=== PATIENT | female | born 2000 | race Caucasian/White ===

== ENCOUNTER 2023-02-11 15:57 | Outpatient (CLI) | payer OTHER, SELFPAY ==
[2023-02-11] VITALS (11 sets, daily range): BP systolic 127–141; BP diastolic 76–88; PULSE 55–110; TEMP 36.8; O2SAT 99; BMI 36.5
[2023-02-11 17:08] LABS: Protein, Urine (Random) 16.9 mg/dL (<11.9); Protein:Creat Ratio 305 mg/g CRE (0-200)
[2023-02-11 17:22] LABS: Hematocrit 35.1 % (37-47); Hemoglobin 11.5 g/dL (12.0-15.0); Mean Corp Hgb Conc 32.8 g/dL (32-36); Mean Corpuscular Hgb 30.5 pg (27.0-32.0); Mean Corpuscular Volume 93.1 fL (81-99); Mean Platelet Vol. 9.7 fl (6.2-12.0); Platelet Count 287 K/mm3 (150-450); RBC Distribution Width CV 13.9 % (11.6-14.6); Red Blood Count 3.77 M/mm3 (4.2-5.4); White Blood Count 16.1 K/mm3 (4.4-11.0)
[2023-02-11 17:30] LABS: AST(SGOT) 11 U/L (15-37); Alanine Aminotransfer ALT/SGPT 20 U/L (13-56); Creatinine, Serum 0.64 mg/dL (0.55-1.02); EST Glomerular Filtration Rate 121 mL/min (>60); Est Glom Filt Rate - Afr Amer 147 mL/min (>60); Estimated Creatinine Clearance 142.87 ml/min; Uric Acid 3.7 mg/dL (2.6-6.0)
--- NOTE | 2023-02-11 17:43 | OB.TRI.HP_ITS ---
HPI - General HPI Narrative MENDY ENNIS, is a 22 F at 30.4 weeks gestation who presents to triage with headache, dizziness, blurred vision, stomach pain, and increased blood pressures at home. Reports that pressures at home were 170/120 and 140's / 100's. Patient has a history of 35 week gestation delivery for preeclampsia. She is a recent transfer of care from [facility] in [place]. Maternal Data Information LIONEL Calculator Estimated Delivery Date Method Current WG Current Estimate 04/18/23 Manual 30w 4d PFSH PFSH Home Medications aspirin 81 mg chewable tablet (Aspirin Childrens) 1 tab PO DAILY 02/11/23 [History Last Taken 02/10/23 21:30] fluoxetine 40 mg capsule (Prozac) 40 mg PO DAILY 02/11/23 [History Last Taken 02/10/23 21:30] vitamins-iron fumarate 65 mg iron-folic acid 1 mg tablet (Mynatal Plus) 1 tab PO DAILY 02/11/23 [History Last Taken 02/10/23 21:30] Allergy/AdvReac Type Severity Reaction Status Date / Time No Known Allergies Allergy Verified 02/11/23 16:34 ROS Eyes Eyes: Reports blurry vision and spots in vision Cardiovascular Cardiovascular: Reports none; Denies chest pain at rest, chest pain with activity or dizziness Respiratory/Chest Respiratory/Chest: Denies cough or dyspnea Gastrointestinal Gastrointestinal: Reports none and other; Denies diarrhea or vomiting Genitourinary Genitourinary: Denies dysuria Musculoskeletal Musculoskeletal: Reports none Integumentary Integumentary: Reports none; Denies rash Neurologic Neurologic: Reports as per HPI, dizziness and headache(s) Psychiatric Psychiatric: Reports none Physical Exam Narrative Patient seen at bedside. Sitting up in bed during assessment. Const alert and no apparent distress General Appearance: cooperative Orientation / Consciousness: awake Exam Limitations: no limitations HEENT normocephalic Eyes General Eye: normal appearance of both eyes Neck full ROM Chest inspection of chest normal Resp normal respiratory effort and normal air movement Effort and Inspection: symmetric chest movement Auscultation: clear to auscultation bilaterally Cardio regular rate GI soft to palpation, non-tender and non-distended Inspection: and other Back/Spine normal ROM Extremity full ROM, normal capillary refill and no calf tenderness Skin no rashes or lesions noted Neuro oriented x3 and CN's II-XII intact bilaterally Psych mental status grossly normal Assessment & Plan (1) 30 weeks gestation of : (2) Headache: (3) Vision changes: (4) Dizzinesses: (5) Elevated blood pressure reading: (6) History of pre-eclampsia in prior , currently : (7) History of delivery: PLAN: Plan PIH labs- normal ranges P/C ratio- 305 Blood pressures- no severe ranges Tylenol 1000 mg PO x 1 now Observation over night- NST every shift Repeat PIH labs and Urine in morning Regular diet BP every 4 hours- call if severe range Dr. Lynn involved in plan of care
[2023-02-11] MEDS: Acetaminophen 500 MG Tablet 1000 MG PO (18:51)
[2023-02-11 19:50] LABS: Color, Urine Yellow (Yellow); Glucose, Dipstick Normal (Normal); Ketone-Dipstick 50 mg/dl (Negative); Leukocyte Esterase-Dipstick Negative /ul (Negative); Nitrite-Dipstick Negative (Negative); Occult Blood-Urine Negative /ul (Negative); Protein-Dipstick Negative (Negative); Urine Bilirubin Dipstick Negative (Negative); Urine Clarity Clear (Clear); Urine Urobilinogen Normal (Normal)
[2023-02-11] MEDS: Mag Hydrox/Al Hydrox/Simeth 30 ML UDC PO (22:27)
[2023-02-11] MEDS: Ondansetron ODT 4 MG Tablet PO (22:27)
[2023-02-12 00:57] VITALS: PULSE 92; O2SAT 97
[2023-02-12 00:58] VITALS: BP 116/56; PULSE 90
[2023-02-12 00:59] VITALS: TEMP 36.1
[2023-02-12 04:31] VITALS: PULSE 92; O2SAT 99
[2023-02-12 04:32] VITALS: BP 97/52; PULSE 91; TEMP 36.4
[2023-02-12] MEDS: Acetaminophen 500 MG Tablet 1000 MG PO (05:04)
[2023-02-12 05:08] LABS: Hematocrit 34.1 % (37-47); Hemoglobin 11.4 g/dL (12.0-15.0); Mean Corp Hgb Conc 33.4 g/dL (32-36); Mean Corpuscular Hgb 31.2 pg (27.0-32.0); Mean Corpuscular Volume 93.4 fL (81-99); Mean Platelet Vol. 9.6 fl (6.2-12.0); Platelet Count 259 K/mm3 (150-450); RBC Distribution Width SD 47.6 fl (35.1-43.9); Red Blood Count 3.65 M/mm3 (4.2-5.4); White Blood Count 13.6 K/mm3 (4.4-11.0)
[2023-02-12 05:26] LABS: AST(SGOT) 13 U/L (15-37); Alanine Aminotransfer ALT/SGPT 21 U/L (13-56); Creatinine, Serum 0.56 mg/dL (0.55-1.02); EST Glomerular Filtration Rate 143 mL/min (>60); Est Glom Filt Rate - Afr Amer 173 mL/min (>60); Estimated Creatinine Clearance 163.28 ml/min; Uric Acid 3.6 mg/dL (2.6-6.0)
--- NOTE | 2023-02-12 08:18 | PN.OBGYN_ITS ---
Subjective Subjective Patient is doing well this morning and was asleep upon entry into the room. She reports her headache improves with Tylenol. She denies visual changes. She denies abdominal pain or vomiting. Tolerating a regular diet. She has no contractions, vaginal bleeding, leaking of fluid. Good movement. Objective Data Objective Data Vital Signs: Vital Signs Temp Pulse BP Pulse Ox 97.6 F L 91 97/52 L 99 02/12/23 04:32 02/12/23 04:32 02/12/23 04:32 02/12/23 04:31 Weight: 247 lb 5.738 oz Body Mass Index (BMI) 36.5 Lab / Micro Data 02/12/23 04:58 02/12/23 04:58 Labs: Laboratory Results - last 24 hr 02/11/23 16:05: U Random Total Protein 16.9 H, Urine Creatinine 55.40, Protein/Creatinin Ratio 305 H 02/11/23 17:00: WBC 16.1 H, RBC 3.77 L, Hgb 11.5 L, Hct 35.1 L, MCV 93.1, MCH 30.5, MCHC 32.8, RDW Std Deviation 47.0 H, RDW Coeff of Miguel 13.9, Plt Count 287, MPV 9.7, Creatinine 0.64, Estim Creat Clear Calc 142.87, Est GFR (MDRD) Af Amer 147, Est GFR (MDRD) Non-Af 121, Uric Acid 3.7, AST 11 L, ALT 20 02/11/23 19:30: Urine Color Yellow, Urine Clarity Clear, Urine pH 7.0, Ur Specific [place] 1.010, Urine Protein Negative, Urine Glucose (UA) Normal, Urine Ketones 50 H, Urine Occult Blood Negative, Urine Nitrite Negative, Urine Bilirubin Negative, Urine Urobilinogen Normal, Ur Leukocyte Esterase Negative 02/12/23 04:58: WBC 13.6 H, RBC 3.65 L, Hgb 11.4 L, Hct 34.1 L, MCV 93.4, MCH 31.2, MCHC 33.4, RDW Std Deviation 47.6 H, RDW Coeff of Miguel 14.0, Plt Count 259, MPV 9.6, Creatinine 0.56, Estim Creat Clear Calc 163.28, Est GFR (MDRD) Af Amer 173, Est GFR (MDRD) Non-Af 143, Uric Acid 3.6, AST 13 L, ALT 21 Physical Exam Const alert and no apparent distress General Appearance: comfortable GI soft to palpation, non-tender and non-distended GI Narrative: No RUQ tenderness Extremity normal to inspection and no calf tenderness Extremity Narrative: Patellar reflexes are 2+ Assessment & Plan (1) 30 weeks gestation of : (2) Pre-eclampsia: PLAN: Headache improved with Tylenol. No other symptoms of preeclampsia this morning. Blood pressures remain normal to mild range. Labs are unremarkable other than elevated protein creatinine ratio. Discussed preeclampsia with patient and reasons to call or come in for further evaluation. Given no evide nce of severe preeclampsia, okay for discharge to home today. Will give first dose of betamethasone today. To return to the office tomorrow before the weekend for her second dose of betamethasone and a blood pressure check. Continue home blood pressure monitoring and call if blood pressure is 160/110 or higher. Will need twice weekly appointments in the office as well, and will message nursing staff regarding this. Discussed with patient if delivery under 32-week gestation baby is likely to get transferred to [place] for further care.
[2023-02-12 08:19] VITALS: BP 124/74; PULSE 83; PULSE 87; TEMP 36.4; O2SAT 100
--- NOTE | 2023-02-12 08:28 | DCINST_ITS ---
Discharge Instructions Diet Discharge Diet: No restrictions Activity May resume sexual activity in: No Restrictions Weight Bearing Status: Weight bearing as tolerated Lifting Restrictions: None Dressing / Incision Call your doctor if you observe: Shortness of breath, Swelling in the ankles, Chest pain, Increased palpitations (irregular heartbeat) and Uncontrolled pain Follow Up Care When: 02/13/23 for second dose of betamethasone and a blood pressure check Test Results: Test results from this visit will be discussed in further detail at your follow- up appointment, if applicable. Discharge Plan Admission Reason For Visit: RULE OUT PRE-E Attending Provider: Breanne Harrison Primary Care Provider: Ruthie Hernandez NP Instructions Patient Instructions: Understanding Preeclampsia Additional Instructions / Restrictions: Check your blood pressure at home 1-2 times at home and call if blood pressures are 160/110 or higher. If you have a headache that does not improve with Tylenol, visual changes, upper abdominal pain, or if you feel sick check your blood pressure and call. Discharge Orders/Prescriptions Prescriptions: No Action fluoxetine [Prozac] 40 mg capsule 40 mg PO DAILY aspirin [Aspirin Childrens] 81 mg tablet,chewable 1 tab PO DAILY Mynatal Plus 65 mg iron- 1 mg tablet 1 tab PO DAILY Referrals / Follow Up: Ruthie Hernandez NP, [facility] [Primary Care Provider] - Disposition Patient Disposition: Home, Self Care
[2023-02-12] MEDS: Betamethasone/Betamethasone 30 MG/5 ML Vial 12 MG IM (08:43)
[2023-02-12 20:33] LABS: Rubella IgG Reactive (Nonreactive)
== END 2023-02-12 08:55 | disposition home or self-care (01) ==
LOC: WPOUT 16:25 → WP 16:26
PROVIDERS: Obstetrics & Gynecology; PCP Registered Nurse; Referring Provider Advanced Practice Midwife; Visit Provider Advanced Practice Midwife
DX: O99.891 Other specified diseases and conditions complicating pregnancy (principal); R51.9 Headache, unspecified; R42 Dizziness and giddiness; R03.0 Elevated blood-pressure reading, without diagnosis of hypertension; Z3A.30 30 weeks gestation of pregnancy
CPT/HCPCS: 96372; 36415; 59025; 59050; 81002; 82565; 82570; 84156; 84450; 84460; 84550; 85027; 86762; 99221; G0378; J0702

== ENCOUNTER 2023-02-16 10:25 | Outpatient (CLI) | payer OTHER, SELFPAY ==
[2023-02-16] VITALS (12 sets, daily range): BP systolic 113–141; BP diastolic 63–87; PULSE 95–110; TEMP 35.7; O2SAT 99; BMI 36.3
[2023-02-16 11:47] LABS: AST(SGOT) 15 U/L (15-37); Alanine Aminotransfer ALT/SGPT 27 U/L (13-56); Creatinine, Serum 0.61 mg/dL (0.55-1.02); EST Glomerular Filtration Rate 129 mL/min (>60); Est Glom Filt Rate - Afr Amer 156 mL/min (>60); Uric Acid 3.6 mg/dL (2.6-6.0)
[2023-02-16 11:49] LABS: Protein, Urine (Random) 9.2 mg/dL (<11.9); Protein:Creat Ratio 264 mg/g CRE (0-200)
[2023-02-16] MEDS: 0.9% NaCl Peripheral Flush Adult/Peds IV (11:49)
[2023-02-16 12:02] LABS: Hematocrit 33.9 % (37-47); Hemoglobin 11.6 g/dL (12.0-15.0); Mean Corp Hgb Conc 34.2 g/dL (32-36); Mean Corpuscular Hgb 32.3 pg (27.0-32.0); Mean Corpuscular Volume 94.4 fL (81-99); Mean Platelet Vol. 9.5 fl (6.2-12.0); Platelet Count 267 K/mm3 (150-450); RBC Distribution Width SD 48.2 fl (35.1-43.9); Red Blood Count 3.59 M/mm3 (4.2-5.4); White Blood Count 15.1 K/mm3 (4.4-11.0)
--- NOTE | 2023-02-17 13:51 | OB.TRI.NOTE ---
HPI - General General Date of Admission: 02/16/23 Date of Service: 02/16/23 HPI Narrative MENDY ENNIS, is a 22 F who presents at 31 2/7 weeks c/o increased BP in office and mild constant ALEXANDER for a week. tylkenol relieves it then it returns. Maternal Data Information LIONEL Calculator Estimated Delivery Date Method Current WG Current Estimate 04/18/23 Manual 31w 3d Gestational age: 31 2/7 at visit PFSH PFS Home Medications aspirin 81 mg chewable tablet (Aspirin Childrens) 1 tab PO BID 02/11/23 [History Last Taken 02/15/23 21:00 1 TAB] fluoxetine 40 mg capsule (Prozac) 40 mg PO DAILY 02/11/23 [History Last Taken 02/14/23 21:30 40 mg] vitamins-iron fumarate 65 mg iron-folic acid 1 mg tablet (Mynatal Plus) 1 tab PO DAILY 02/11/23 [History Last Taken 02/15/23 21:30 1 TAB] Allergy/AdvReac Type Severity Reaction Status Date / Time cefdinir [From Omnicef] Allergy Intermediate Hives Verified 02/16/23 11:00 oxycodone Allergy Intermediate Hives Verified 02/16/23 11:00 NST FHR Rate Baby A Baseline: normal Variability:: Moderate Accelerations:: 15 x 15 Decelerations:: None NST Reactive:: Yes FHR Category:: Category I Uterine Activity:: no regular ctxs Assessment & Plan (1) Headache: PLAN: Plan High risk multigravida at 31-2/7 weeks with complicated by history of previous preeclampsia. Mild headache. No evidence of preeclampsia with severe features. Blood pressures are normal. Labs are negative. Return to the office tomorrow for regular scheduled visit. We will reschedule growth scan. Patient had arrived in the office for growth scan today and her blood pressures were significantly elevated and she was sent immediately to labor and delivery for evaluation. She had stopped betamethasone last week during her admission for headache for rule out preeclampsia at that time.
== END 2023-02-16 13:04 | disposition home or self-care (01) ==
LOC: WPOUT 10:30 → WP 10:31
PROVIDERS: PCP Registered Nurse; Referring Provider Obstetrics & Gynecology; Visit Provider Obstetrics & Gynecology
DX: O99.891 Other specified diseases and conditions complicating pregnancy (principal); R51.9 Headache, unspecified; Z79.82 Long term (current) use of aspirin; Z79.899 Other long term (current) drug therapy; Z3A.31 31 weeks gestation of pregnancy
CPT/HCPCS: 36415; 59025; 59050; 82565; 82570; 84156; 84450; 84460; 84550; 85027; 99221; A4216; G0378

== ENCOUNTER 2023-03-18 17:40 | Outpatient (CLI) | payer OTHER, SELFPAY ==
[2023-03-18 18:00] VITALS: BMI 38.3
[2023-03-18 18:02] VITALS: BP 128/84; PULSE 109; TEMP 36.7; O2SAT 97
--- NOTE | 2023-03-18 18:36 | OB.TRI.NOTE ---
HPI - General HPI Narrative MENDY ENNIS, is a 22 F at 35.4 weeks gestation who presents to triage with cough, congestion, rib pain and decreased movement. Maternal Data Information LIONEL Calculator Estimated Delivery Date Method Current WG Current Estimate 04/18/23 Manual 35w 4d PFSH PFSH Home Medications aspirin 81 mg chewable tablet (Aspirin Childrens) 1 tab PO BID 02/11/23 [History Last Taken 03/17/23 21:00 1 TAB] fluoxetine 40 mg capsule (Prozac) 40 mg PO DAILY 02/11/23 [History Last Taken 03/17/23 21:00 40 mg] vitamins-iron fumarate 65 mg iron-folic acid 1 mg tablet (Mynatal Plus) 1 tab PO DAILY 02/11/23 [History Last Taken 03/17/23 21:00 1 TAB] Allergy/AdvReac Type Severity Reaction Status Date / Time cefdinir [From Omnicef] Allergy Intermediate Hives Verified 03/18/23 18:26 oxycodone Allergy Intermediate Hives Verified 03/18/23 18:26 ROS Eyes Eyes: Denies blurry vision Cardiovascular Cardiovascular: Reports none; Denies chest pain at rest, chest pain with activity or dizziness Respiratory/Chest Respiratory/Chest: Reports chest congestion, chest tightness and cough; Denies dyspnea Gastrointestinal Gastrointestinal: Reports none and other; Denies diarrhea or vomiting Genitourinary Genitourinary: Denies dysuria Musculoskeletal Musculoskeletal: Reports none Integumentary Integumentary: Reports none; Denies rash Neurologic Neurologic: Denies dizziness, headache(s) or other visual disturbances Psychiatric Psychiatric: Reports none Physical Exam Const alert and no apparent distress General Appearance: cooperative Orientation / Consciousness: awake Exam Limitations: no limitations HEENT normocephalic Eyes General Eye: normal appearance of both eyes Neck full ROM Chest inspection of chest normal Resp normal respiratory effort and normal air movement Effort and Inspection: symmetric chest movement Auscultation: clear to auscultation bilaterally Cardio regular rate GI soft to palpation, non-tender and non-distended Inspection: and other Back/Spine normal ROM Extremity full ROM, normal capillary refill and no calf tenderness Skin no rashes or lesions noted Neuro oriented x3 and CN's II-XII intact bilaterally Psych mental status grossly normal NST FHR Rate Baby A Baseline: 150 Variability:: Moderate Accelerations:: 15 x 15 Decelerations:: None NST Reactive:: Yes FHR Category:: Category I Uterine Activity:: irritability Assessment & Plan (1) Cough: (2) Congestion of nasal sinus: (3) Rib pain: (4) Decreased movement: (5) 35 weeks gestation of : PLAN: Plan Cat. 1 tracing- Patient has felt movement since arrival Reviewed appropriate medications to take during Support provided D/C home with follow up in office
== END 2023-03-18 18:45 | disposition home or self-care (01) ==
LOC: WPOUT 17:47 → WP 17:47
PROVIDERS: PCP Registered Nurse; Referring Provider Advanced Practice Midwife; Visit Provider Advanced Practice Midwife
DX: O36.8130 Decreased fetal movements, third trimester, not applicable or unspecified (principal); Z3A.35 35 weeks gestation of pregnancy; O99.891 Other specified diseases and conditions complicating pregnancy; R07.81 Pleurodynia; Z79.82 Long term (current) use of aspirin; R05.9 Cough, unspecified; R09.81 Nasal congestion
CPT/HCPCS: 59025; 59050; 99221; G0378

== ENCOUNTER 2023-03-20 10:30 | Outpatient (CLI) | payer OTHER, SELFPAY ==
[2023-03-20] VITALS (8 sets, daily range): BP systolic 127–144; BP diastolic 63–88; PULSE 94–110; TEMP 36.6; O2SAT 99; BMI 38.0
[2023-03-20 11:41] LABS: Hematocrit 35.7 % (37-47); Hemoglobin 11.8 g/dL (12.0-15.0); Mean Corp Hgb Conc 33.1 g/dL (32-36); Mean Corpuscular Hgb 31.1 pg (27.0-32.0); Mean Corpuscular Volume 93.9 fL (81-99); Mean Platelet Vol. 9.9 fl (6.2-12.0); Platelet Count 266 K/mm3 (150-450); RBC Distribution Width CV 13.3 % (11.6-14.6); RBC Distribution Width SD 45.4 fl (35.1-43.9); White Blood Count 13.3 K/mm3 (4.4-11.0)
[2023-03-20 11:54] LABS: Protein, Urine (Random) 22.5 mg/dL (<11.9); Protein:Creat Ratio 275 mg/g CRE (0-200)
[2023-03-20 12:08] LABS: AST(SGOT) 10 U/L (15-37); Alanine Aminotransfer ALT/SGPT 23 U/L (13-56); Creatinine, Serum 0.61 mg/dL (0.55-1.02); EST Glomerular Filtration Rate 128 mL/min (>60); Est Glom Filt Rate - Afr Amer 154 mL/min (>60)
--- NOTE | 2023-03-20 13:08 | OB.TRI.NOTE ---
HPI - General General Date of Admission: 03/20/23 Date of Service: 03/20/23 Chief Complaint: elevated BP at home HPI Narrative MENDY JURADO, is a 22 presented w/ increase BP at home. Maternal Data Information LIONEL Calculator Estimated Delivery Date Method Current WG Current Estimate 04/18/23 Manual 35w 6d Final LIONEL: 03/18/23 Gestational age: 35 6/7 PFSH PFSH Home Medications aspirin 81 mg chewable tablet (Aspirin Childrens) 1 tab PO BID 02/11/23 [History Last Taken 03/19/23 21:30 1 TAB] fluoxetine 40 mg capsule (Prozac) 40 mg PO DAILY 02/11/23 [History Last Taken 03/19/23 21:30 40 mg] vitamins-iron fumarate 65 mg iron-folic acid 1 mg tablet (Mynatal Plus) 1 tab PO DAILY 02/11/23 [History Last Taken 03/19/23 21:30 1 TAB] Allergy/AdvReac Type Severity Reaction Status Date / Time cefdinir [From Omnicef] Allergy Intermediate Hives Verified 03/20/23 11:39 oxycodone Allergy Intermediate Hives Verified 03/20/23 11:39 NST FHR Rate Baby A Baseline: 150 Variability:: Moderate Accelerations:: 15 x 15 Decelerations:: Variable NST Reactive:: Yes FHR Category:: Category I (for > 20 min before d/c) Assessment & Plan (1) 35 weeks gestation of : PLAN: No evidence of preeclampsia. Released to go to the office for ultrasound that was to be done immediately after this visit. Follow-up as needed or as scheduled. Likely delivery at 37 weeks (2) High risk multigravida in third trimester: (3) Gestational hypertension:
== END 2023-03-20 13:00 | disposition home or self-care (01) ==
LOC: WPOUT 10:44 → WP 10:45
PROVIDERS: PCP Registered Nurse; Referring Provider Obstetrics & Gynecology; Visit Provider Obstetrics & Gynecology
DX: O13.3 Gestational [pregnancy-induced] hypertension without significant proteinuria, third trimester (principal); Z79.82 Long term (current) use of aspirin; Z3A.35 35 weeks gestation of pregnancy
CPT/HCPCS: 36415; 59025; 59050; 82565; 82570; 84156; 84450; 84460; 84550; 85027

== ENCOUNTER 2023-03-28 07:02 | Inpatient (IN) | payer OTHER, SELFPAY ==
[2023-03-28] VITALS (65 sets, daily range): BP systolic 111–178; BP diastolic 55–103; PULSE 34–129; TEMP 36.2–37.6; O2SAT 81–100; BMI 37.6
[2023-03-28] MEDS: 0.9% Normal Saline Single 100 ML IV.SOLN. INTRA-UTER (08:00)
[2023-03-28] MEDS: Lactated Ringers 1,000 ML 50 ML IV (08:00)
[2023-03-28 08:14] LABS: Absolute Lymphocyte Count 2.22 X10^3/uL (0.83-4.51); Absolute Neutrophil Count 9.8 X10^3/uL (2.0-7.7); Basophil# 0.03 X10^3/uL; Basophil% 0.2 % (0-1); Eosinophil# 0.12 X10^3/uL; Eosinophils% 0.9 % (0-5); Hematocrit 36.3 % (37-47); Hemoglobin 12.3 g/dL (12.0-15.0); Lymphocyte # 2.22 X10^3/ul (0.83-4.51); Lymphocyte % 16.7 % (19-41); Mean Corp Hgb Conc 33.9 g/dL (32-36); Mean Corpuscular Hgb 31.6 pg (27.0-32.0); Mean Corpuscular Volume 93.3 fL (81-99); Mean Platelet Vol. 9.8 fl (6.2-12.0); Monocyte# 1.02 X10^3/uL; Monocyte% 7.7 % (0-10); NRBC Flagged by Analyzer 0 % (0-5); Neutrophil # 9.78 X10^3/uL (2.7-7.7); Neutrophil % 73.7 % (47-70); Platelet Count 260 K/mm3 (150-450); RBC Distribution Width CV 13.6 % (11.6-14.6); RBC Distribution Width SD 45.6 fl (35.1-43.9); Red Blood Count 3.89 M/mm3 (4.2-5.4); White Blood Count 13.3 K/mm3 (4.4-11.0)
[2023-03-28 08:45] LABS: Syphilis Antibodies Non-reactive
[2023-03-28] MEDS: miSOPROStol 25 MCG TABLET VAGINAL (09:27)
--- NOTE | 2023-03-28 10:19 | HP.PCM.OB_ITS ---
HPI - General General Date of Admission: 03/28/23 HPI Narrative MENDY JURADO, is a 22 F at 37 weeks gestation who presents for induction of labor for GHTN. complicated by elevated blood pressures and anxiety. Previous delivery was for preeclampsia while in [place]. Maternal Data Information LIONEL Calculator Estimated Delivery Date Method Current WG Current Estimate 04/18/23 Manual 37w 0d PFSH PFSH Home Medications aspirin 81 mg chewable tablet (Aspirin Childrens) 1 tab PO BID 02/11/23 [History Last Taken 03/27/23] fluoxetine 40 mg capsule (Prozac) 40 mg PO DAILY anxiety 02/11/23 [History Last Taken 03/27/23] vitamins-iron fumarate 65 mg iron-folic acid 1 mg tablet (Mynatal Plus) 1 tab PO DAILY 02/11/23 [History Last Taken 03/27/23] Allergy/AdvReac Type Severity Reaction Status Date / Time cefdinir [From Omnicef] Allergy Intermediate Hives Verified 03/28/23 08:36 oxycodone Allergy Intermediate Hives Verified 03/28/23 08:36 ROS Eyes Eyes: Denies blurry vision, change in vision or spots in vision ENT HEENT: Denies dizziness or headache(s) Cardiovascular Cardiovascular: Denies abdominal pain, chest pain or dyspnea Respiratory/Chest Respiratory/Chest: Denies cough, dyspnea, shortness of breath at rest or shortness of breath with exertion Gastrointestinal Gastrointestinal: Denies abdominal pain, diarrhea or vomiting Genitourinary Genitourinary: Denies change in urinary stream, difficulty urinating or dysuria Musculoskeletal Musculoskeletal: Reports none Integumentary Integumentary: Denies rash Neurologic Neurologic: Denies dizziness, headache(s), memory loss or weakness Psychiatric Psychiatric: Reports none Vital Signs Vital Signs Vital Signs: 03/28/23 08:21 03/28/23 08:21 03/28/23 08:21 Temperature Temperature Source Temporal Pulse Rate 99 Blood Pressure 138/99 H BP Systolic 138 BP Diastolic 99 Pulse Ox 03/28/23 08:21 03/28/23 08:21 03/28/23 09:55 Temperature 97.2 F L Temperature Source Pulse Rate Blood Pressure 160/103 H BP Systolic 160 BP Diastolic 103 Pulse Ox 98 03/28/23 09:55 03/28/23 09:55 03/28/23 09:55 Temperature Temperature Source Pulse Rate 100 100 Blood Pressure BP Systolic BP Diastolic Pulse Ox 99 03/28/23 09:56 03/28/23 09:56 03/28/23 09:56 Temperature Temperature Source Temporal Pulse Rate 90 Blood Pressure BP Systolic BP Diastolic Pulse Ox 98 03/28/23 09:56 03/28/23 10:06 03/28/23 10:06 Temperature 98.0 F Temperature Source Pulse Rate 101 H Blood Pressure 146/95 H BP Systolic 146 BP Diastolic 95 Pulse Ox Weight Weight: 255 lb Body Mass Index (BMI) 37.6 Physical Exam Const alert, oriented x3 and no apparent distress General Appearance: cooperative Orientation / Consciousness: awake Exam Limitations: no limitations HEENT normocephalic Head and Scalp: normal to inspection Eyes General Eye: normal appearance of both eyes Neck full ROM and no lymphadenopathy Lymph Lymphatic: no lymphadenopathy noted Chest inspection of chest normal Resp normal respiratory effort, normal air movement and clear to auscultation bilaterally Effort and Inspection: able to speak in complete sentences and symmetric chest movement Cardio regular rate and regular rhythm GI normal to inspection, nondistended, normoactive bowel sounds Manual OB Exam: presentation cephalic Back/Spine normal ROM Extremity full ROM and no calf tenderness Skin no rashes or lesions noted General Skin Exam: no breakdown Neuro oriented x3 and CN's II-XII intact bilaterally Psych mental status grossly normal and thought process normal Labs Labs Labs: Blood Type A POSITIVE Antibody Screen NEGATIVE Hct 36.3 % (37-47) L Hgb 12.3 g/dL (12.0-15.0) Syphilis Total Ab Non-reactive Rubella IgG Antibody Reactive (Nonreactive) GBS negative Assessment & Plan (1) Gestational hypertension: (2) High risk multigravida in third trimester: (3) History of delivery: (4) History of pre-eclampsia in prior , currently : (5) Elevated blood pressure reading: (6) Anxiety: (7) 37 weeks gestation of : (8) Encounter for induction of labor: PLAN: Plan Admit to labor and delivery PIH labs Start Hypertension protocol Start IV fluids and run per orders GBS negative CE- 0.5/60/-2- Cytotec 25 mcg PO x 6 doses total Tejada bulb placed without difficulty and filled with 40 cc N/S AROM for bloody fluid during placement of tejada bulb Position changes/ ambulation Pain medications / epidural when indicated Dr. Menjivar aware of admission and is collaborating physician
[2023-03-28 11:09] LABS: ALB/GLOB Ratio 0.6 RATIO (0.9-2.4); AST(SGOT) 10 U/L (15-37); Alanine Aminotransfer ALT/SGPT 21 U/L (13-56); Albumin, Serum 2.5 g/dL (3.2-5.0); Alkaline Phosphatase 135 U/L (45-117); Anion Gap 8 (5-15); BUN 5 mg/dL (7-18); BUN/Creat Ratio 6.8 RATIO (10-20); Calcium,Total 9.1 mg/dL (8.5-10.1); Chloride 110 mmol/L (98-107); Creatinine, Serum 0.74 mg/dL (0.55-1.02); EST Glomerular Filtration Rate 104 mL/min (>60); Est Glom Filt Rate - Afr Amer 125 mL/min (>60); Estimated Creatinine Clearance 123.57 ml/min; Globulin 4.2 g/dL (2.2-4.2); Glucose 105 mg/dL (74-106); Potassium 3.6 mmol/L (3.5-5.1); Protein, Total 6.7 g/dL (6.4-8.2); Sodium Level 141 mmol/L (136-145)
[2023-03-28] MEDS: NIFEdipine 30 MG Tablet PO (13:56)
[2023-03-28] MEDS: Oxytocin 15 Units/NS 250ml 15 UNITS/250 ML IV.SOLN 2 UNITS IV (13:57)
[2023-03-28] MEDS: LACTATED RINGERS 500 ML 999 ML IV (15:08)
[2023-03-28] MEDS: fentaNYL-bupivacaine (epidural) 100 ML BAG EPIDURAL ×2 (16:22→21:21)
[2023-03-28] MEDS: Lactated Ringers 1,000 ML 200 ML IV ×2 (17:22→22:36)
--- NOTE | 2023-03-28 17:37 | PCM.PN.BLA ---
Progress Note Patient seen at bedside. Comfortable with epidural. Denies any pain. Blood pressures improved and are within normal ranges since pain controlled. Assessment & Plan Assessment/Plan (1) Encounter for induction of labor: (2) 37 weeks gestation of : (3) Anxiety: (4) Gestational hypertension: (5) High risk multigravida in third trimester: PLAN: Plan CE- 3/70/-3- Fore bag ruptured for clear fluid IUPC placed to trace contractions Cat. 1 tracing NST reactive Pitocin at 4 mu/min- continue to increase per policy Anticipate
[2023-03-28] MEDS: Mag Hydrox/Al Hydrox/Simeth 30 ML UDC PO (19:44)
[2023-03-28] MEDS: Acetaminophen 500 MG Tablet PO (20:32)
[2023-03-28] MEDS: fentaNYL 100 MCG/2 ML Ampul IV (20:46)
[2023-03-28] MEDS: Ondansetron 4 MG/2 ML Vial IV (21:21)
[2023-03-28] MEDS: proCHLORPERazine 10 MG/2 ML Vial IV (23:09)
--- NOTE | 2023-03-28 23:51 | EX.PCM.OBRPT ---
Assessment & Plan (1) (spontaneous vaginal delivery): (2) Care and examination of lactating mother: (3) Gestational hypertension: (4) Anxiety: Maternal Data Information LIONEL Calculator Estimated Delivery Date Method Current WG Current Estimate 04/18/23 Manual 37w 0d Gestational age: 37 weeks gestation Vaginal Delivery Maternal Presentation Maternal Presentation: Medically Indicated Induction Maternal Presentation: Scheduled induction of labor for gestational hypertension Type of Induction: Pitocin, Edwards Bulb, Amniotomy and Cytotec Medical Reason for Induction: Gestational Hypertension Operative Information Date of Procedure: 03/28/23 Pre-Operative Diagnosis: Term gestation, induction of labor, gestational hypertension Post-Operative Diagnosis: , live male infant Surgery / Procedure Performed: Spontaneous Vaginal Delivery Type of Anesthesia: Epidural Drain: Edwards to straight drain Estimated Blood Loss: 200 Time of Delivery: 23:38 Findings Description of Procedure: Called to patient's room for delivery. With minimal maternal effort, head followed by remainder of body delivered over intact perineum without traction. Vigorous male placed on maternal abdomen and was attended to by nursing staff. IV Pitocin started for active management of the third stage of labor. 3 vessel cord clamped and cut by FOB after delay. Placenta delivered spontaneously and intact. Vagina and perineum intact. Vaginal sweep completed by me. Fundus firm 2 below U. EBL 200 cc. APGARS 7/8. Infant and patient bonding well at this time. Dr. Menjivar notified of delivery. Presentation: Vertex Amniotic Membrane Rupture Type: Artificial Time of Membrane Rupture: 0815 Amniotic Fluid Description: Bloody Placental Delivery Description: Spontaneous Placenta Disposition: [facility] Cord Vessel Description: 3 Vessels Cord Entanglement: None Nuchal Cord Compression: Without compression A Gender: Male (1 minute): 7 (5 minute): 8 Delayed Cord Clamping: Yes Post Vaginal Delivery Medications Given After Delivery: IV Pitocin Episiotomy Description: None Laceration: None Complication Complications: None
[2023-03-29] VITALS (26 sets, daily range): BP systolic 117–147; BP diastolic 55–92; PULSE 85–108; RESP 16–18; TEMP 36.2–37.1; O2SAT 96–99
[2023-03-29] MEDS: Oxytocin 15 Units/NS 250ml 15 UNITS/250 ML IV.SOLN 83 UNITS IV (00:11)
[2023-03-29] MEDS: Naproxen 500 MG Tablet PO ×2 (02:46→15:22)
[2023-03-29] MEDS: 0.9% Saline Lock 10 ML Syringe IV (03:12)
--- NOTE | 2023-03-29 07:34 | PCM.PN.OB ---
Subjective Subjective Patient resting quietly. Denies pain. Ambulating and voiding without difficulty. with support. Objective Data Objective Data Vital Signs: Vital Signs Temp Pulse Resp BP Pulse Ox O2 Del Method 98.7 F 93 16 122/68 H 96 Room Air 03/29/23 03:53 03/29/23 03:53 03/29/23 03:53 03/29/23 03:53 03/29/23 03:53 03/29/23 03:53 Oxygen Delivery Method Room Air Weight: 255 lb Body Mass Index (BMI) 37.6 Intake & Output: Intake and Output for Last 24 Hours 03/27/23 03/28/23 03/29/23 23:59 23:59 23:59 Intake Total 2500.87 / 2500.87 422.57 / 422.57 Output Total 900 / 900 Balance 1600.87 / 1600.87 422.57 / 422.57 Lab / Micro Data 03/28/23 07:50 03/28/23 07:50 Labs: Laboratory Results - last 24 hr 03/28/23 07:50: WBC 13.3 H, RBC 3.89 L, Hgb 12.3, Hct 36.3 L, MCV 93.3, MCH 31.6, MCHC 33.9, RDW Std Deviation 45.6 H, RDW Coeff of Miguel 13.6, Plt Count 260, MPV 9.8, Immature Gran % (Auto) 0.800, Neut % (Auto) 73.7 H, Lymph % (Auto) 16.7 L, Stevens % (Auto) 7.7, Eos % (Auto) 0.9, Baso % (Auto) 0.2, Absolute Neuts (auto) 9.8 H, Absolute Lymphs (auto) 2.22, Nucleated RBC % 0, Sodium 141, Potassium 3.6, Chloride 110 H, Carbon Dioxide 23.0, Anion Gap 8, BUN 5 L, Creatinine 0.74, Estim Creat Clear Calc 123.57, Est GFR (MDRD) Af Amer 125, Est GFR (MDRD) Non-Af 104, BUN/Creatinine Ratio 6.8 L, Glucose 105, Calcium 9.1, Total Bilirubin 0.40, AST 10 L, ALT 21, Alkaline Phosphatase 135 H, Total Protein 6.7, Albumin 2.5 L, Globulin 4.2, Albumin/Globulin Ratio 0.6 L, Syphilis Total Ab Non-reactive, Blood Type A POSITIVE, Antibody Screen NEGATIVE ROS Eyes Eyes: Denies blurry vision, change in vision or spots in vision ENT HEENT: Denies dizziness or headache(s) Cardiovascular Cardiovascular: Denies abdominal pain, chest pain or dyspnea Respiratory/Chest Respiratory/Chest: Denies cough, dyspnea, shortness of breath at rest or shortness of breath with exertion Gastrointestinal Gastrointestinal: Denies abdominal pain, diarrhea or vomiting Genitourinary Genitourinary: Denies change in urinary stream, difficulty urinating or dysuria Musculoskeletal Musculoskeletal: Reports none Integumentary Integumentary: Denies rash Neurologic Neurologic: Denies dizziness, headache(s), memory loss or weakness Assessment & Plan (1) Care and examination of lactating mother: (2) (spontaneous vaginal delivery): (3) Anxiety: (4) Gestational hypertension: PLAN: Plan PPD 1 support BP normal at 122/68 Increase ambulation today Anticipate discharge home tomorrow (36 hours for GHTN)
[2023-03-29] MEDS: Acetaminophen 500 MG Tablet 1000 MG PO (10:16)
[2023-03-29] MEDS: NIFEdipine 30 MG Tablet PO (13:59)
[2023-03-29] MEDS: Fluoxetine HCl 40 MG CAPSULE PO (22:03)
[2023-03-30 00:16] VITALS: BP 140/87; PULSE 85; RESP 16; TEMP 36.4; O2SAT 97
[2023-03-30] MEDS: Naproxen 500 MG Tablet PO (04:09)
[2023-03-30 04:11] VITALS: BP 153/96; PULSE 91; RESP 15; TEMP 36.1; O2SAT 97
[2023-03-30 05:06] VITALS: BP 139/90
[2023-03-30 09:01] VITALS: BP 139/85; PULSE 90; RESP 14; TEMP 37.2; O2SAT 98
--- NOTE | 2023-03-30 09:01 | PCM.PN.OB ---
Subjective Subjective Doing well per patient and nursing staff. Ambulating and taking PO without difficulty. Voiding and passing flatus. Pain controlled. , services for assistance. Denies headache, visual changes, chest pain, shortness of breath, leg pain or increased bleeding. Lochia normal. Objective Data Objective Data Vital Signs: Vital Signs Temp Pulse Resp BP Pulse Ox O2 Del Method 97 F L 91 15 139/90 H 97 Room Air 03/30/23 04:11 03/30/23 04:11 03/30/23 04:11 03/30/23 05:06 03/30/23 04:11 03/30/23 04:11 Oxygen Delivery Method Room Air Weight: 255 lb Body Mass Index (BMI) 37.6 Intake & Output: Intake and Output for Last 24 Hours 03/28/23 03/29/23 03/30/23 23:59 23:59 23:59 Intake Total 2500.87 / 2500.87 422.57 / 422.57 Output Total 900 / 900 600 / 600 Balance 1600.87 / 1600.87 -177.43 / -177.43 Lab / Micro Data 03/28/23 07:50 03/28/23 07:50 ROS Constitutional Constitutional: Reports systems reviewed and no addt'l complaints, except as documented; Denies headache(s) Eyes Eyes: Denies acute decrease in peripheral vision, blurry vision or change in vision ENT HEENT: Reports systems reviewed and no addt'l complaints, except as documented Cardiovascular Cardiovascular: Denies chest pain or dizziness Respiratory/Chest Respiratory/Chest: Denies cough, dyspnea, dyspnea on exertion, shortness of breath at rest or shortness of breath with exertion Gastrointestinal Gastrointestinal: Denies abdominal pain, diarrhea, nausea or vomiting Genitourinary Genitourinary: Denies abdominal discomfort Musculoskeletal Musculoskeletal: Denies limited range of motion Integumentary Integumentary: Reports systems reviewed and no addt'l complaints, except as documented Neurologic Neurologic: Reports systems reviewed and no addt'l complaints, except as documented Psychiatric Psychiatric: Reports systems reviewed and no addt'l complaints, except as documented Endocrine Endocrinology: Reports systems reviewed and no addt'l complaints, except as documented Hematologic/Lymphatic Hematologic/Lymphatic: Reports systems reviewed and no addt'l complaints, except as documented Allergic/Immunologic Allergic/Immunologic: Reports systems reviewed and no addt'l complaints, except as documented Physical Exam Const alert and oriented x3 General Appearance: cooperative Orientation / Consciousness: awake, oriented to person, oriented to place and oriented to time Exam Limitations: no limitations HEENT normocephalic Head and Scalp: normal to inspection, normocephalic and atraumatic Face and Sinus: normal facial exam Eyes General Eye: normal appearance of both eyes Neck full ROM Chest Chest: symmetrical chest wall rise Resp normal respiratory effort and normal air movement Auscultation: clear to auscultation bilaterally Cardio regular rate, regular rhythm, S1 normal heart sound, S2 normal heart sound, no murmurs, no rub, no gallops and no clicks GI normal to inspection, nondistended, normoactive bowel sounds and non-tender appearance of the vagina normal Bladder / Kidney Exam: no CVA tenderness Back/Spine normal ROM Extremity normal to inspection and full ROM Skin no rashes or lesions noted Neuro oriented x3, CN's II-XII intact bilaterally and moves all extremities Sensorium / Orientation: awake, alert and oriented to person Motor Exam: clonus absent Assessment & Plan (1) Care and examination of lactating mother: (2) (spontaneous vaginal delivery): (3) Gestational hypertension: PLAN: Plan 1) Routine PP care 2) 3) I&O 4) Pain management 5) BP mild elevation, taking Procardia 30mg PO daily for GHTN. Requesting discharge home. 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 Discussed S&S, BP level, and when to call/return to hospital. Will follow up end of week in office for BP check. Patient is reasonable and voiced understanding. 6) D/C home, follow up this week, 2 week and 6 week PP
--- NOTE | 2023-03-30 09:04 | PCM.DC.SUM ---
Providers Date of Admission: 03/28/23 Primary Care Physician: Ruthie Hernandez NP-C Reason For Visit: VAGINAL DELIVERY Diagnosis Discharge Diagnosis (1) Care and examination of lactating mother: Status: Acute Code(s): Z39.1 - Encounter for care and examination of lactating mother (2) (spontaneous vaginal delivery): Status: Acute Code(s): O80 - Encounter for full-term uncomplicated delivery (3) Gestational hypertension: Status: Acute Code(s): O13.9 - Gestational [-induced] hypertension without significant proteinuria, unspecified trimester Plan 1) Routine PP care 2) 3) I&O 4) Pain management 5) BP mild elevation, taking Procardia 30mg PO daily for GHTN. Requesting discharge home. 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 Discussed S&S, BP level, and when to call/return to hospital. Will follow up end of week in office for BP check. Patient is reasonable and voiced understanding. 6) D/C home, follow up this week, 2 week and 6 week PP Medications at Discharge Home Medications fluoxetine 40 mg capsule (Prozac) 40 mg PO DAILY anxiety 02/11/23 acetaminophen 500 mg tablet 1,000 mg (2 x 500 mg) PO Q6H PRN PRN Pain 1-10 Or Fever #0 tabs 03/30/23 naproxen 500 mg tablet 500 mg PO Q8H PRN PRN Pain Score 1-3 #0 tabs 03/30/23 nifedipine 30 mg tablet,extended release 24 hr 30 mg PO DAILY@1300 #30 tabs 03/30/23 Hospital Course Summary of Care Provided Minutes Spent on Discharge: 15 Weight / BMI Weight Weight: 255 lb Body Mass Index (BMI) 37.6 ABG / Lab / Microbiology Data 03/28/23 07:50 03/28/23 07:50 Meaningful Use Info Meaningful Use Diagnoses (Choose all that apply): None applicable Discharge Plan Admission Admit Date/Time: 03/28/23 07:02 Primary Reason for Your Visit: Vaginal Delivery, GHTN Attending Provider: Breanne Harrison Primary Care Provider: Ruthie Hernandez TRAVELER CHANGER Discharge Orders/Prescriptions Prescriptions: New nifedipine 30 mg Tablet Extended Release 24hr 30 mg PO DAILY@1300 Qty: 30 0RF acetaminophen 500 mg Tablet 1,000 mg PO Q6H PRN PRN (Reason: Pain 1-10 Or Fever) Qty: 0 0RF naproxen 500 mg Tablet 500 mg PO Q8H PRN PRN (Reason: Pain Score 1-3) Qty: 0 0RF Continued fluoxetine [Prozac] 40 mg capsule 40 mg PO DAILY Discontinued aspirin [Aspirin Childrens] 81 mg tablet,chewable 1 tab PO BID Mynatal Plus 65 mg iron- 1 mg tablet 1 tab PO DAILY Referrals / Follow Up: Ruthie Hernandez NP, TRAVELER CHANGER-C [Primary Care Provider] - Breanne Harrison CNM [Med Staff - Adv Practice Prof] - (Follow up with physician this week (/THU). 2 week and 6 week PP) Disposition Disposition (needs filled in before D/C Order can be placed): Home, Self Care
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
[2023-03-30] MEDS: NIFEdipine 30 MG Tablet PO ×2 (13:06→15:36)
[2023-03-30 14:09] VITALS: BP 137/91; PULSE 92; RESP 16; TEMP 36.3; O2SAT 96
[2023-03-30 14:45] VITALS: BP 140/100
== END 2023-03-30 16:20 | disposition home or self-care (01) | DRG 807 ==
PROVIDERS: Admitting Provider Advanced Practice Midwife; PCP Registered Nurse; Visit Provider Advanced Practice Midwife
DX: O13.4 Gestational [pregnancy-induced] hypertension without significant proteinuria, complicating childbirth (principal); Z37.0 Single live birth; O99.344 Other mental disorders complicating childbirth; F41.9 Anxiety disorder, unspecified; Z79.82 Long term (current) use of aspirin; Z3A.37 37 weeks gestation of pregnancy
CPT/HCPCS: 59025; 59050; 80053; 85025; 86780; 86850; 86900; 86901; 99221; J7120; A4216; G0378; J2405